=== PATIENT | male | born 1965 | race Caucasian/White ===

== ENCOUNTER 2020-12-04 16:05 | Outpatient (CLI) | payer OTHER, SELFPAY | END 2020-12-04 16:06 | disposition home or self-care (01) | LOC: ANHCOVIDVC 16:05 | PROVIDERS: PCP Family Medicine | DX: Z23 Encounter for immunization (principal) | CPT/HCPCS: 0001A; 91300 ==

== ENCOUNTER 2020-12-25 16:06 | Outpatient (CLI) | payer OTHER, SELFPAY | END 2020-12-25 16:07 | disposition home or self-care (01) | LOC: ANHCOVIDVC 16:06 | PROVIDERS: PCP Family Medicine | DX: Z23 Encounter for immunization (principal) | CPT/HCPCS: 0002A; 91300 ==

== ENCOUNTER 2023-06-04 05:50 | Day surgery (SDC) | payer OTHER, SELFPAY ==
[2023-05-05 09:04] VITALS: BMI 31.4
--- NOTE | 2023-06-04 07:18 | WPDANESEPPF ---
Anes - Initial Pre Proc Eval Procedure: Operation Date: 06/04/23 08:00 Proposed Procedures p Screening Colonoscopy - Ye York MD Date/Time: 06/04/23 07:18 Surgeon: Ye York MD Pre Op Diagnosis: Neoplasm Screening Patient Data Age: 58 Gender: M Height: 1.71 m Weight: 90.9 kg Allergies Allergy/AdvReac Type Severity Reaction Status Date / Time No Known Allergies Allergy Unknown Verified 06/04/23 06:28 Home Medications Medication Instructions Recorded Confirmed Type fenofibrate nanocrystallized 145 145 mg PO DAILY #90 tabs 08/29/20 06/04/23 Rx mg tablet bupropion HCl 300 mg 24 hr tablet, 300 mg PO QAM #90 tabs 02/11/23 06/04/23 Rx extended release rosuvastatin 20 mg tablet (Crestor) 20 mg PO DAILY #90 tabs 02/26/23 06/04/23 Rx lisinopril 20 mg tablet 20 mg PO DAILY #90 tabs 05/27/23 06/04/23 Rx Patient hx anesthesia problems: none Family hx anesthesia problems: none Results Review: All pre-operative results and documents have been reviewed as part of the pre-operative evaluation. [facility] Past Medical History Medical History Essential hypertension Mixed hyperlipidemia Primary sclerosing cholangitis Recurrent major depressive disorder, in partial remission Surgical History Surgical History (Updated 06/04/23 @ 07:23 by Damion Sanz DO) History of cholecystectomy Family History Family History (Updated 02/20/23 @ 14:46 by Agatha Hewitt [facility]) Father Heart disease Cardiovascular disease CHF (congestive heart failure) Obesity Grandparent Acute myocardial infarction Grandparent Cancer of unknown origin Mother Parkinsons Dementia Grandparent Dementia Grandparent Acute myocardial infarction Sibling Congenital heart problem Acute myocardial infarction Cardiovascular disease Sibling No problems noted. Sibling Lupus Social History Social History Smoking status: Never smoker Second hand tobacco smoke exposure: No Alcohol intake: never Substance use: never Substance use type: does not use Lack of Transportation: No Lack of Food: Never True Current Housing: I Have Housing Concerned About Future Housing: No Difficulty Paying Gas/Electric Bills: No Difficulty Paying for Meds: No Currently Unemployed: No Education: Master's Degree or Higher Difficulty w/ Childcare or Family Care: No Living arrangements: with family Spiritual care concerns: No Anes - Eval Final PreProcedure Day of Procedure 06/04/23 07:18 Patient weight: obese Heart: regular rate and rhythm Lungs: clear to auscultation Airway: Mallampati scale class II Neurological: alert and oriented Last oral intake: >/= 8 hours ASA classification: III Emergent: no Anesthetic plan: proceed Anesthesia type and monitoring: general GIVS and standard monitoring Results Review: All pre-operative results and documents have been reviewed as part of the pre-operative evaluation. Informed Consent: The patient's anesthetic plan and its attendant risks and benefits were discussed with the patient/family/POA. Questions were solicited and answers provided to the satisfaction of the patient/family/POA.
[2023-06-04 07:33] VITALS: BP 123/81; PULSE 75; RESP 16; TEMP 36.6; O2SAT 99
[2023-06-04] MEDS: LACTATED RINGERS 1,000 ML 150 ML IV CONT (07:34)
--- NOTE | 2023-06-04 07:41 | PM.HPGS ---
History of Present Illness History of Present Illness Consent: Risks, benefits, and alternatives have been discussed and questions answered. Patient agrees to proceed with procedure. Chief complaint: Neoplasm Screening Narrative: Judah Stephens is a 58 year old male here for screening colonoscopy, last one 2010 Review of Systems Constitutional: Constitutional: Denies headache(s) and Denies weakness Eyes: Eyes: Denies blurry vision ENT: Reports Normal hearing present, Denies headache(s) and Denies neck pain Cardiovascular: Cardiovascular: Denies chest pain and Denies dyspnea Respiratory: Respiratory: Denies dyspnea Gastrointestinal: Gastrointestinal: Reports no additional gastrointestinal complaints Genitourinary: Genitourinary: Denies dysuria Musculoskeletal: Musculoskeletal: Denies neck pain Integumentary/Breasts: Skin/Breast: Denies dry skin Neurologic: Reports Normal hearing present, Denies headache(s) and Denies weakness Psychiatric: Psychiatric: Denies anxiety Endocrine: Endocrine: Denies change in body appearance Hematologic/Lymphatic: Hematologic/Lymphatic: Denies easy bleeding Allergic/Immunologic: Allergic/Immunologic: Denies urticaria PMFSH Past Medical History Medical History (Updated 06/04/23 @ 07:41 by Ye York MD) Colon cancer screening Essential hypertension Mixed hyperlipidemia Primary sclerosing cholangitis Recurrent major depressive disorder, in partial remission Surgical History Surgical History (Updated 06/04/23 @ 07:23 by Damion Sanz DO) History of cholecystectomy Family History Family History (Updated 02/20/23 @ 14:46 by Agatha Hewitt CMA) Father Heart disease Cardiovascular disease CHF (congestive heart failure) Obesity Grandparent Acute myocardial infarction Grandparent Cancer of unknown origin Mother Parkinsons Dementia Grandparent Dementia Grandparent Acute myocardial infarction Sibling Congenital heart problem Acute myocardial infarction Cardiovascular disease Sibling No problems noted. Sibling Lupus Social History Social History Smoking status: Never smoker Second hand tobacco smoke exposure: No Alcohol intake: never Substance use: never Substance use type: does not use Lack of Transportation: No Lack of Food: Never True Current Housing: I Have Housing Concerned About Future Housing: No Difficulty Paying Gas/Electric Bills: No Difficulty Paying for Meds: No Currently Unemployed: No Education: Master's Degree or Higher Difficulty w/ Childcare or Family Care: No Living arrangements: with family Spiritual care concerns: No Meds Home Medications and Allergies Home Medications Medication Instructions Recorded Confirmed Type fenofibrate nanocrystallized 145 145 mg PO DAILY #90 tabs 08/29/20 06/04/23 Rx mg tablet bupropion HCl 300 mg 24 hr tablet, 300 mg PO QAM #90 tabs 02/11/23 06/04/23 Rx extended release rosuvastatin 20 mg tablet (Crestor) 20 mg PO DAILY #90 tabs 02/26/23 06/04/23 Rx lisinopril 20 mg tablet 20 mg PO DAILY #90 tabs 05/27/23 06/04/23 Rx Allergies Allergy/AdvReac Type Severity Reaction Status Date / Time No Known Allergies Allergy Unknown Verified 06/04/23 06:28 Vital Signs Vital Signs - 24 hr 06/04/23 07:33 Temperature 97.9 F Pulse Rate 75 Respiratory Rate 16 Blood Pressure 123/81 Pulse Oximetry 99 Oxygen Delivery Room Air Exam Const: General: comfortable and no acute distress HENMT: Face/Nose/Sinus: Normal nares present Eyes: General: appearance normal, both eyes and all related structures Neck: Neck: no JVD Resp: Auscultation: clear to auscultation bilaterally Cardio: Rate: regular rate Rhythm: regular rhythm GI: Inspection: non-distended GI Palp: Yes Soft to palpation Skin: Gene
[2023-06-04 07:48] VITALS: BP 118/80; PULSE 71; RESP 12; TEMP 36.4; O2SAT 96
[2023-06-04 07:58] VITALS: BP 114/97; PULSE 72; RESP 16; O2SAT 99
[2023-06-04 08:19] VITALS: BP 117/95; PULSE 70; RESP 16; O2SAT 99
== END 2023-06-04 08:25 | disposition home or self-care (01) ==
PROVIDERS: PCP Family Medicine; Visit Provider Internal Medicine Gastroenterology
PROC: 0DJD8ZZ Inspection of Lower Intestinal Tract, Via Natural or Artificial Opening Endoscopic (ICD-10-PCS; CPT 45378; principal; 2023-06-04 08:00)
DX: Z12.11 Encounter for screening for malignant neoplasm of colon (principal); K64.8 Other hemorrhoids
CPT/HCPCS: 45378